=== PATIENT | male | born 1925 | race Caucasian/White ===

== ENCOUNTER 2017-04-30 22:01 | Emergency (ER) | payer MEDICARE ==
[~2017-04-30] VITALS: Ht 172.7 cm; Wt 79.4 kg
--- NOTE | 2017-04-30 22:20 | NUR ---
PATIENT AFTER BEING TRIAGE DID NOT WANT TO SEE ERMD. PATIENT SON WHO BROUGHT PATIENT IN AGREE WITH PATIENT NOT TO BE SEEN BY ERMD STATING " I FEEL FINE NOW. WE WILL SEE OUR DOCTOR IN THE MORNING." PATIENT WITH NO DISTRESS NOTED. PATIENT WALKED OUT OF ER WITH STEADY GAIT WITH SON TAKING PATIENT HOME
== END 2017-04-30 23:13 | disposition left against medical advice (07) ==
LOC: ER 22:08
DX: S09.90XA Unspecified injury of head, initial encounter (principal); I10 Essential (primary) hypertension; X58.XXXA Exposure to other specified factors, initial encounter; Y93.89 Activity, other specified; Y92.89 Other specified places as the place of occurrence of the external cause; Y99.8 Other external cause status; Z53.21 Procedure and treatment not carried out due to patient leaving prior to being seen by health care provider
CPT/HCPCS: A4663